=== PATIENT | female | born 1985 | race Caucasian/White ===

== ENCOUNTER → 2018-08-25 22:20 | Observation (INO) ==
[2018-08-25 21:13] LABS: Amphetamine Screen,Urine Negative ng/mL (Cutoff=1000); Barbiturate Screen,Urine Negative ng/mL (Cutoff=200); Benzodiazepines Screen,Urine Negative ng/mL (Cutoff=200); Cannabinoid Screen,Urine Negative ng/mL (Cutoff = 50); Cocaine Screen,Urine Negative ng/mL (Cutoff= 300); Opiate Screen,Urine Negative ng/mL (Cutoff=300); Phencyclidine Screen,Urine Negative ng/mL (Cutoff=25)
--- NOTE | 2018-08-25 22:11 | OB/GYN Progress Note ---
Date of Encounter: 08/25/18 Time of Encounter: 22:09 - Assessment and Plan (1) 38 weeks gestation of Current Visit: Yes Status: Acute (2) Decreased movement during in third trimester, antepartum Current Visit: Yes Status: Acute Patient began feeling movement once placed on monitor, reactive NST. Discharged home with labor and when to return to triage precautions. Patient verbalizes understanding Qualifiers: Fetus number: single or unspecified fetus Qualified Code(s): O36.8130 - Decreased movements, third trimester, not applicable or unspecified Subjective - Subjective Interval history: 38+6 weeks gestation presents to triage with complaints of decreased movement. Patient states that had decreased movement today, however been feeling movement now that she has in triage. Reports occasional contraction, denies leaking of fluid or vaginal bleeding Antepartum ROS: contractions, no loss of fluid, no vaginal bleeding, no movement normal Objective - Vital Signs Vital Signs: Intake and Output 08/25/18 08/25/18 08/25/18 07:59 15:59 23:59 Other: Weight 68.6 kg Patient Weight 08/25/18 23:59 Weight 68.6 kg - Exam FHR: auscultation normal FHR comments: Baseline 130 reactive NST Abdomen: Present: soft, gravid Cervical dilation: 2/50/-2 per RN
== END | disposition home or self-care (01) ==
LOC: 1NENULAB
PROVIDERS: ADMIT Advanced Practice Midwife; ATTEND Advanced Practice Midwife

== ENCOUNTER → 2020-03-11 23:25 | Observation (INO) ==
[2020-03-11 20:35] LABS: Basophils # 0.1 K/mcL (0.0-0.2); Basophils % 0.7 %; Bilirubin,Urine Negative (Negative); Blood,Urine Negative (Negative); Clarity,Urine Clear (Clear); Color,Urine Colorless (Yellow); Eosinophils # 0.1 K/mcL (0.0-0.6); Eosinophils % 1.2 %; Glucose,Urine (UA) Normal (Normal); Hematocrit 33.2 % (35.3-44.9); Hemoglobin 10.4 g/dL (11.5-15.4); Immature Granulocytes % 4.6 % (0-4); Ketones,Urine Negative (Negative); Leukocyte Esterase,Urine Negative (Negative); Lymphocytes # 1.8 K/mcL (0.6-4.6); Lymphocytes % 16.7 %; Mean Corpuscular HGB Conc 31.3 g/dL (31.6-35.5); Mean Corpuscular Hemoglobin 24.5 pg (28.0-33.3); Mean Corpuscular Volume 78.1 fL (83.0-100.0); Mean Platelet Volume 12.6 fL (9.4-12.4); Monocytes % 8.9 %; Neutrophils # 7.4 K/mcL (1.6-8.9); Nitrite,Urine Negative (Negative); PH,Urine 6.5 pH Units (5.0-8.0); Platelet Count 220 K/mcL (140-400); Protein,Urine Negative (Neg-Trace); Red Blood Count 4.25 M/mcL (3.82-4.97); Red Cell Distribution Width 13.4 % (11.5-14.5); Segmented Neutrophils % 67.9 %; Specific Gravity,Urine < 1.005 (1.010-1.025); Urobilinogen,Urine Normal (Normal); White Blood Count 10.9 K/mcL (4.3-11.1)
[2020-03-11 21:00] LABS: Alanine Aminotransferase 52 Units/L (7-52); Albumin 3.4 g/dL (3.5-5.7); Albumin/Globulin Ratio 1.1 (1.1-2.2); Alkaline Phosphatase 97 Units/L (34-104); Amylase 55 Units/L (29-103); Aspartate Amino Transferase 42 Units/L (13-39); BUN/Creatinine Ratio 9 (6-26); Bilirubin,Total 0.4 mg/dL (0.3-1.0); Blood Urea Nitrogen 4 mg/dL (6-20); Calcium 8.7 mg/dL (8.6-10.3); Carbon Dioxide 20 mEq/L (23-29); Chloride 105 mEq/L (98-107); Glucose 68 mg/dL (70-105); Lipase 26 Units/L (11-82); Osmolality,Calculated 277 (280-300); Potassium 3.6 mEq/L (3.5-5.1); Sodium 136 mEq/L (136-145); Total Protein 6.4 g/dL (6.4-8.9); eGFR For African Americans > 60 (> 60); eGFR For Non-African Americans > 60 (> 60)
[2020-03-11 21:37] LABS: Candida DNA Not Detected (Not Detect); Gardnerella DNA Not Detected (Not Detect); Trichomonas DNA Not Detected (Not Detect)
[~2020-03-11 23:25] MED LIST: Acetaminophen 325 MG TABLET PO ONE; Ringers Solution, Lactated 1,000 ML IVC ONE
== END | disposition home health service (06) ==
LOC: 1NENULAB
PROVIDERS: ADMIT Registered Nurse; ATTEND Registered Nurse

== ENCOUNTER 2020-03-16 09:00 | Observation (INO) ==
[2020-03-15 20:03] LABS: Bilirubin,Urine Negative (Negative); Blood,Urine Negative (Negative); Clarity,Urine Clear (Clear); Color,Urine Colorless (Yellow); Glucose,Urine (UA) Normal (Normal); Ketones,Urine 10 mg/dL (Negative); Leukocyte Esterase,Urine Negative (Negative); Nitrite,Urine Negative (Negative); Protein,Urine Negative (Neg-Trace); Specific Gravity,Urine 1.005 (1.010-1.025); Urobilinogen,Urine Normal (Normal)
[2020-03-15 20:04] LABS: Hematocrit 33.8 % (35.3-44.9); Hemoglobin 10.6 g/dL (11.5-15.4); Mean Corpuscular HGB Conc 31.4 g/dL (31.6-35.5); Mean Corpuscular Hemoglobin 25.2 pg (28.0-33.3); Mean Corpuscular Volume 80.5 fL (83.0-100.0); Mean Platelet Volume 12.7 fL (9.4-12.4); Platelet Count 236 K/mcL (140-400); Red Cell Distribution Width 13.5 % (11.5-14.5); White Blood Count 13.3 K/mcL (4.3-11.1)
[2020-03-15 20:20] LABS: Lymphocytes # 1.6 K/mcL (0.6-4.6); Monocytes # 0.5 K/mcL (0.0-1.3); Neutrophils # 10.4 K/mcL (1.6-8.9); Platelet Estimate Normal (Normal)
[2020-03-15 20:23] LABS: Alanine Aminotransferase 91 Units/L (7-52); Albumin 3.6 g/dL (3.5-5.7); Albumin/Globulin Ratio 1.1 (1.1-2.2); Alkaline Phosphatase 127 Units/L (34-104); Aspartate Amino Transferase 82 Units/L (13-39); BUN/Creatinine Ratio 9 (6-26); Bilirubin,Total 0.5 mg/dL (0.3-1.0); Blood Urea Nitrogen 4 mg/dL (6-20); Calcium 9.3 mg/dL (8.6-10.3); Carbon Dioxide 21 mEq/L (23-29); Chloride 103 mEq/L (98-107); Globulin 3.3 g/dL (2.4-3.5); Glucose 77 mg/dL (70-105); Osmolality,Calculated 278 (280-300); Potassium 3.6 mEq/L (3.5-5.1); Sodium 136 mEq/L (136-145); Total Protein 6.9 g/dL (6.4-8.9); eGFR For African Americans > 60 (> 60); eGFR For Non-African Americans > 60 (> 60)
[2020-03-15 23:01] LABS: Lactate Dehydrogenase 187 Units/L (140-271); Uric Acid 4.3 mg/dL (2.3-7.6)
[2020-03-15 23:22] LABS: Creatinine,Urine 19 mg/dL
[2020-03-16 01:36] LABS: Hepatitis B Surface Antigen Nonreactive (Nonreactive)
[2020-03-16 02:05] LABS: Hepatitis B Core IgM Nonreactive (Nonreactive)
[2020-03-16 02:06] LABS: Hepatitis A Antibody IgM Nonreactive (Nonreactive); Hepatitis C Virus Antibody Nonreactive (Nonreactive)
[~2020-03-16 09:00] MED LIST changes: -Acetaminophen 325 MG TABLET PO ONE; +Prochlorperazine 10 MG/2 ML VIAL IVP ONE; -Ringers Solution, Lactated 1,000 ML IVC ONE; +Ringers Solution, Lactated 1,000 ML IVC SCH; +ursodioL 300 MG CAPSULE PO SCH
[2020-03-18 14:20] LABS: ANA IgG by ELISA DETECTED (None Detected)
[2020-03-18 18:55] LABS: ANA HEp-2 IgG IFA DETECTED (<1:80); Anti Nuclear Ab Pattern SPECKLED
== END 2020-03-16 13:23 | disposition home or self-care (01) ==
LOC: 1NENULAB
PROVIDERS: ADMIT Obstetrics & Gynecology; ATTEND Obstetrics & Gynecology

== ENCOUNTER 2020-04-10 13:12 | Inpatient (IN) ==
[2020-04-10] MEDS ORDERED: EPHEDrine 50 MG/ML VIAL IVP PRN (13:53)
[2020-04-10] MEDS ORDERED: Epidural Premix (fent/bupiv) 110 ML EP SCH (14:00)
[2020-04-10] MEDS ORDERED: Naloxone 0.4 MG/ML INJ IVP PRN (14:09)
[2020-04-10] MEDS ORDERED: Ondansetron 4 MG/2 ML VIAL IVP PRN (14:09)
[2020-04-10] MEDS ORDERED: Lidocaine 1% 20 ML MDV INFILT PRN (14:09)
[2020-04-10] MEDS ORDERED: *HR* FentaNYL (PF) 100 MCG/2 ML VIAL IVP PRN (14:09)
[2020-04-10] MEDS ORDERED: Metoclopramide 10 MG/2 ML VIAL IVP PRN (14:09)
[2020-04-10] MEDS ORDERED: Famotidine 20 MG/2 ML VIAL IVP PRN (14:09)
[2020-04-10] MEDS ORDERED: Ringers Solution, Lactated 1,000 ML IVC SCH (14:15)
[2020-04-10 15:29] LABS: Basophils # 0.1 K/mcL (0.0-0.2); Basophils % 1.1 %; Eosinophils # 0.1 K/mcL (0.0-0.6); Eosinophils % 0.4 %; Hematocrit 36.4 % (35.3-44.9); Hemoglobin 10.9 g/dL (11.5-15.4); Immature Granulocytes % 3.7 % (0-4); Lymphocytes # 1.8 K/mcL (0.6-4.6); Lymphocytes % 15.6 %; Mean Corpuscular HGB Conc 29.9 g/dL (31.6-35.5); Mean Corpuscular Hemoglobin 22.9 pg (28.0-33.3); Mean Corpuscular Volume 76.5 fL (83.0-100.0); Mean Platelet Volume 12.8 fL (9.4-12.4); Monocytes # 0.6 K/mcL (0.0-1.3); Monocytes % 5.6 %; Neutrophils # 8.3 K/mcL (1.6-8.9); Platelet Count 219 K/mcL (140-400); Red Blood Count 4.76 M/mcL (3.82-4.97); Red Cell Distribution Width 14.6 % (11.5-14.5); Segmented Neutrophils % 73.6 %; White Blood Count 11.3 K/mcL (4.3-11.1)
[2020-04-10 15:37] LABS: Amphetamine Screen,Urine Negative ng/mL (Cutoff=1000); Barbiturate Screen,Urine Negative ng/mL (Cutoff=200); Benzodiazepines Screen,Urine Negative ng/mL (Cutoff=200); Cannabinoid Screen,Urine Negative ng/mL (Cutoff = 50); Cocaine Screen,Urine Negative ng/mL (Cutoff= 300); Opiate Screen,Urine Negative ng/mL (Cutoff=300); Phencyclidine Screen,Urine Negative ng/mL (Cutoff=25)
[2020-04-10] MEDS ORDERED: Acetaminophen 325 MG TABLET PO ONE (19:48)
[2020-04-10] MEDS ORDERED: Oxytocin 20 units/ LR 1000 mL 20 UNIT/1,000 ML BAG IVC ONE (21:35)
[2020-04-10] MEDS ORDERED: ursodioL 300 MG CAPSULE PO SCH (21:45)
[2020-04-10] MEDS ORDERED: Oxytocin 20 units/ LR 1000 mL 20 UNIT/1,000 ML BAG IVC SCH (21:45)
[2020-04-11] MEDS ORDERED: Ibuprofen 600 MG TABLET PO ONE (06:20)
[2020-04-11] MEDS ORDERED: Measles/Mumps/Rubella Vacc 0.5 ML VIAL SQ PRN (08:15)
[2020-04-11] MEDS ORDERED: Oxytocin 20 units/ LR 1000 mL 20 UNIT/1,000 ML BAG IVC ONE (08:15)
[2020-04-11] MEDS ORDERED: Oxytocin 20 units/ LR 1000 mL 20 UNIT/1,000 ML BAG IVC SCH (08:15)
[2020-04-11] MEDS ORDERED: Benzocaine/Menthol 56 GM AEROSOL SPRAY TP PRN (08:15)
[2020-04-11] MEDS ORDERED: Rho Immune Globulin 1,500 UNIT SYRINGE IM PRN (08:15)
[2020-04-11] MEDS: Acetaminophen 325 MG TABLET PO PRN ×2 (09:01→17:03)
[2020-04-11] MEDS: Prenatal Vit/FA 1 EACH TABLET PO SCH (09:01)
[2020-04-11] MEDS: Ibuprofen 600 MG TABLET PO PRN ×2 (12:38→18:45)
[2020-04-12] MEDS: Ibuprofen 600 MG TABLET PO PRN (04:24)
[2020-04-12] MEDS: Prenatal Vit/FA 1 EACH TABLET PO SCH (07:23)
[2020-04-12 07:54] VITALS: BP 117/74
[2020-04-12 09:04] LABS: Basophils # 0.1 K/mcL (0.0-0.2); Basophils % 0.6 %; Eosinophils # 0.1 K/mcL (0.0-0.6); Eosinophils % 0.5 %; Hematocrit 27.1 % (35.3-44.9); Hemoglobin 8.5 g/dL (11.5-15.4); Immature Granulocytes % 4.2 % (0-4); Immature Platelets 13.6 % (1.1-6.1); Lymphocytes # 1.9 K/mcL (0.6-4.6); Lymphocytes % 17.8 %; Mean Corpuscular HGB Conc 31.4 g/dL (31.6-35.5); Mean Corpuscular Hemoglobin 24.1 pg (28.0-33.3); Mean Platelet Volume 12.5 fL (9.4-12.4); Monocytes # 0.6 K/mcL (0.0-1.3); Monocytes % 5.2 %; Neutrophils # 7.8 K/mcL (1.6-8.9); Platelet Count 198 K/mcL (140-400); Red Blood Count 3.52 M/mcL (3.82-4.97); Red Cell Distribution Width 14.6 % (11.5-14.5); Segmented Neutrophils % 71.7 %; White Blood Count 10.8 K/mcL (4.3-11.1)
== END 2020-04-12 12:15 | disposition home or self-care (01) | DRG 805 ==
LOC: 1NENULAB 13:12 → 1NENUOBS 04-11 07:56
PROVIDERS: ADMIT Obstetrics & Gynecology; ATTEND Obstetrics & Gynecology